=== PATIENT | male | born 1945 | race Caucasian/White ===

== ENCOUNTER 2017-03-22 13:27 | Observation (INO) | payer MEDICARE, BC ==
[2017-03-22] VITALS (9 sets, daily range): BP systolic 98–123; BP diastolic 56–85; PULSE 58–115; TEMP 97.5–98.9
[~2017-03-22] VITALS: Ht 180.3 cm; Wt 90.0 kg
[~2017-03-22 13:27] MED LIST: CORGARD40 MG PO; COUMADIN 5MG5 MG/TAB PO; ENOXAPARIN SQ; FLOMAX 0.40.4 MG/CAP PO; NO HOME MEDICATIONS; PERCOCET 325 MG1 TA2 PO; STATIN; TIKOSYN0.125 MG PO; ULTRAM 50MG TAB50 MG PO; ZOFRAN8 MG PO
[2017-03-22] MEDS ORDERED: COUMADIN 1MG1 MG/TAB PO (14:21)
[2017-03-22] MEDS ORDERED: CORGARD20 MG PO (14:22)
[2017-03-22] MEDS ORDERED: LIPITOR 10MG10 MG PO (14:23)
[2017-03-22] MEDS ORDERED: PROSCAR 5MG5 MG PO (14:24)
[2017-03-23 01:03] VITALS: BP 92/61; PULSE 114; TEMP 98.2
[2017-03-23 05:28] VITALS: BP 94/79; PULSE 54; TEMP 98.5
[2017-03-23 05:48] VITALS: BP 110/65; PULSE 96; TEMP 98.9
[2017-03-23 09:09] VITALS: BP 106/68; PULSE 49; TEMP 97.7
[2017-03-23 13:25] VITALS: BP 121/81; PULSE 45; TEMP 97.1
[2017-03-23 18:16] VITALS: BP 140/92; PULSE 57; TEMP 98.6
== END 2017-03-23 20:15 | disposition home or self-care (01) ==
LOC: SDCO 13:27 → JCC 17:44
DX: N21.0 Calculus in bladder (principal); N20.2 Calculus of kidney with calculus of ureter; N40.1 Benign prostatic hyperplasia with lower urinary tract symptoms; R39.15 Urgency of urination; R39.12 Poor urinary stream; R35.0 Frequency of micturition; E78.00 Pure hypercholesterolemia, unspecified; I10 Essential (primary) hypertension; I48.91 Unspecified atrial fibrillation; G43.909 Migraine, unspecified, not intractable, without status migrainosus; M19.90 Unspecified osteoarthritis, unspecified site; Z79.01 Long term (current) use of anticoagulants; Z98.52 Vasectomy status; Z86.73 Personal history of transient ischemic attack (TIA), and cerebral infarction without residual deficits; Z87.891 Personal history of nicotine dependence; Z80.1 Family history of malignant neoplasm of trachea, bronchus and lung; Z83.49 Family history of other endocrine, nutritional and metabolic diseases; Z82.49 Family history of ischemic heart disease and other diseases of the circulatory system; Z82.0 Family history of epilepsy and other diseases of the nervous system
CPT/HCPCS: C1769; C2617; G0378; G0379; J0690; J1100; J1885; J2405; J2704; J3010; J7030; J7120